=== PATIENT | male | born 1960 | race Caucasian/White ===

== ENCOUNTER 2017-03-19 13:18 | Emergency (ER) | payer SELFPAY ==
[~2017-03-19] VITALS: Ht 180.3 cm; Wt 77.0 kg
[2017-03-19] MEDS ORDERED: SODIUM BICARBONATE 8.4% INJ 50 MEQ/50 ML SYR IV ONE (13:19)
[2017-03-19] MEDS ORDERED: CALCIUM CHLORIDE 10% SOLN 1 GRAM/10 ML SYR IV ONE (13:19)
[2017-03-19] MEDS ORDERED: EPINEPHrine HCL (1:10,000) 1 MG/10 ML SYRINGE IV ONE (13:19)
--- NOTE | 2017-03-19 13:56 | PD ---
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 40 minutes later his friends checked on him and found him unresponsive in the car. They don't know of any medical problems that he has. EMS found the patient to be asystolic but he had an end-tidal CO2 in the 20-28 range so they continued CPR. They administered 3 mg of epinephrine and blood sugar was in the 80s. They placed a Combitube. PFSH Past Medical History Medical History: Unable to Obtain Social History Tobacco Use: No (unknown) Review of Systems ROS Limitations: Unresponsive Physical Exam Narrative GENERAL:Unresponsive SKIN: Mottling of the face HEAD: Atraumatic. Normocephalic. EYES: Pupils 3mm equal and reactive ENT: Moist mucous membranes NECK: Trachea midline. CARDIOVASCULAR: Pulseless RESPIRATORY: Clear to auscultation. Breath sounds equal bilaterally. GASTROINTESTINAL: Abdomen soft,distended. MUSCULOSKELETAL: No obvious deformities. NEUROLOGICAL: Unresponsive GCS 3t. MDM Medical Decision Making Medical Screen Exam Complete: Yes Emergency Medical Condition: Yes Differential Diagnosis myocardial infarction, pulmonary embolism, aortic dissection, subarachnoid hemorrhage Narrative Course This is a 56 year old male who presents to the emergency department having been found unresponsive in his car. Pt. was in asystole with transport but had an end tidal CO2 from 20-28. Pt. was given bicarbonate,calcium, and combitube was exchanged for an endotracheal tube with confirmation by lung sounds and end tidal CO2. Patient remained in asystole. There was no cardiac motion on ultrasound. Ultimately further resuscitation was deemed futile. Code was called at 1:30 PM. Procedures Procedure Narrative After the risks and benefits were discussed the following procedure was performed: INTUBATION: The patient was put in optimal position for the procedure. The patient was intubated with a 7.5 cuffed endotracheal tube. Tube placement was confirmed by visualization of the tube and balloon passing through the cords, capnometry and subsequent chest x-ray. Breath sounds were equal and well aerated bilaterally postintubation. No breath sounds over stomach. Patient tolerated procedure well. Diagnosis Primary Impression: Cardiac arrest Condition: Michelle Soto MD Mar 19, 2017 13:56
== END 2017-03-19 16:19 | disposition expired ==
LOC: PHED 13:18
DX: I46.9 Cardiac arrest, cause unspecified (principal)
CPT/HCPCS: 31500; 96374; 96375; 99285; J0171